=== PATIENT | female | born 1990 | race African-American/Black ===

== ENCOUNTER → 2019-08-27 | Outpatient (CLI) | payer OTHER ==
[~2019-08-27] MED LIST: ENBRACE HR SOF1 EACH PO; PEPCID20 MG PO; VITAFOL-OB+DHA1 EACH PO; ZOFRAN ODT4 MG PO
== END ==
LOC: ULTRA 08:46
DX: R10.11 Right upper quadrant pain (principal)

== ENCOUNTER 2019-09-06 10:22 | Emergency (ER) | payer OTHER ==
[~2019-09-06] VITALS: Ht 160 cm; Wt 86.2 kg
[2019-09-06] MEDS ORDERED: ENBRACE HR SOF1 EACH PO (10:46)
[2019-09-06 11:42] LABS: ABSOLUTE NEUTROPHILS 2.2 thou/uL (1.4-8.2); BASOPHILS 0.9 % (0.0-2.0); HEMATOCRIT 39.6 % (37.0-47.0); HEMOGLOBIN 13.2 gm/dL (12.0-15.0); LYMPHOCYTES 35.4 % (24.0-44.0); MCH 30.5 pg (26.0-34.0); MCHC 33.3 g/dL (28.0-37.0); MCV 91.4 fL (80.0-100.0); MONOCYTES 8.7 % (1.0-8.0); PLATELET COUNT 310 thou/uL (150-400); RBC 4.33 mil/uL (4.20-5.00); RDW 13.2 % (10.5-14.5); WBC 4.2 thou/uL (4.0-11.0)
[2019-09-06 11:44] LABS: CALCIUM 9.1 mg/dL (8.5-10.1); CREATININE 0.7 mg/dL (0.6-1.0); POTASSIUM 3.5 mmol/L (3.5-5.1)
[2019-09-06 11:51] LABS: ALBUMIN 3.3 g/dL (3.4-5.0); DIRECT BILIRUBIN 0.1 mg/dL (<0.1-0.2); TOTAL BILIRUBIN 0.4 mg/dL (<0.1-1.0)
[2019-09-06] MEDS ORDERED: VITAFOL-OB+DHA1 EACH PO (13:15)
[2019-09-06] MEDS ORDERED: ZOFRAN ODT4 MG PO (13:15)
[2019-09-06] MEDS ORDERED: PEPCID20 MG PO (13:15)
[2019-09-06 13:25] LABS: URINE BLOOD NEGATIVE (Negative); URINE CLARITY CLEAR; URINE COLOR YELLOW; URINE GLUCOSE-RANDOM* NEGATIVE (Negative); URINE KETONES TRACE (Negative); URINE LEUKOCYTES-REFLEX NEGATIVE (Negative); URINE NITRITE-REFLEX NEGATIVE (Negative); URINE PROTEIN (DIPSTICK) TRACE (Negative)
[2019-09-06 13:35] LABS: ICTOTEST (BILI CONFIRMATORY) Negative (Negative); URINE BILIRUBIN NEGATIVE (Negative)
[2019-09-06 13:47] VITALS: BP 117/64
== END 2019-09-06 13:49 | disposition home or self-care (01) ==
LOC: ER 10:22
PROVIDERS: Emergency Medicine; Physician Assistant
DX: O21.9 Vomiting of pregnancy, unspecified (principal); O26.891 Other specified pregnancy related conditions, first trimester; R10.13 Epigastric pain; Z3A.08 8 weeks gestation of pregnancy; Z79.899 Other long term (current) drug therapy; Z90.49 Acquired absence of other specified parts of digestive tract; Z98.890 Other specified postprocedural states

== ENCOUNTER → 2019-11-12 | Outpatient (CLI) | payer OTHER | LOC: ULTRA 10:14 | DX: Z34.92 Encounter for supervision of normal pregnancy, unspecified, second trimester (principal); Z3A.18 18 weeks gestation of pregnancy ==

== ENCOUNTER 2019-11-28 11:41 | Emergency (ER) | payer OTHER ==
[~2019-11-28] VITALS: Ht 152.4 cm; Wt 86.6 kg
[2019-11-28] MEDS ORDERED: MIRALAX119 GM PO (12:01)
[2019-11-28 12:26] LABS: URINE BILIRUBIN NEGATIVE (Negative); URINE BLOOD NEGATIVE (Negative); URINE COLOR YELLOW; URINE GLUCOSE-RANDOM* NEGATIVE (Negative); URINE KETONES 1+ (Negative); URINE LEUKOCYTES-REFLEX NEGATIVE (Negative); URINE NITRITE-REFLEX NEGATIVE (Negative); URINE PROTEIN (DIPSTICK) NEGATIVE (Negative); URINE UROBILINOGEN 0.2 E.U./dl (0.2-1.0)
[2019-11-28 12:27] LABS: URINE CLARITY SLIGHTLY CLOUDY
[2019-11-28 12:46] LABS: ANION GAP 12 mmol/L (7-16); BUN 5 mg/dL (7-18); CALCIUM 9.1 mg/dL (8.5-10.1); CHLORIDE 103 mmol/L (98-107); CO2 20 mmol/L (21-32); CREATININE 0.5 mg/dL (0.6-1.0); GLUCOSE 80 mg/dL (74-106); POTASSIUM 3.6 mmol/L (3.5-5.1); SODIUM 135 mmol/L (136-145)
[2019-11-28 12:52] LABS: ALBUMIN 2.6 g/dL (3.4-5.0); DIRECT BILIRUBIN < 0.1 mg/dL (<0.1-0.2); SGOT 17 U/L (15-37); SGPT 7 U/L (30-65); TOTAL BILIRUBIN 0.3 mg/dL (<0.1-1.0); TOTAL PROTEIN 6.5 g/dL (6.4-8.2)
[2019-11-28 12:53] LABS: ABSOLUTE NEUTROPHILS 3.9 thou/uL (1.4-8.2); BASOPHILS 0.3 % (0.0-2.0); HEMOGLOBIN 12.7 gm/dL (12.0-15.0); LYMPHOCYTES 23.7 % (24.0-44.0); MCHC 33.5 g/dL (28.0-37.0); MCV 92.5 fL (80.0-100.0); MONOCYTES 6.8 % (1.0-8.0); PLATELET COUNT 313 thou/uL (150-400); POLYS 67.2 % (36.0-66.0); RBC 4.11 mil/uL (4.20-5.00); RDW 14.3 % (10.5-14.5); WBC 5.8 thou/uL (4.0-11.0)
[2019-11-28] MEDS ORDERED: REGLAN 10 MG TA10 MG PO (15:05)
[2019-11-28] MEDS ORDERED: FLONASE 0.05%50 MCG NARES (15:05)
[2019-11-28] MEDS ORDERED: 3-DAY VAGINAL C21 GM VAG (15:26)
[2019-11-28 16:30] VITALS: BP 126/73
== END 2019-11-28 16:30 | disposition home or self-care (01) ==
LOC: ER 11:41
PROVIDERS: Emergency Medicine
DX: O26.892 Other specified pregnancy related conditions, second trimester (principal); R10.84 Generalized abdominal pain; Z3A.20 20 weeks gestation of pregnancy; M54.2 Cervicalgia; M54.9 Dorsalgia, unspecified; R10.2 Pelvic and perineal pain; R09.81 Nasal congestion; R11.0 Nausea; Z79.899 Other long term (current) drug therapy; Z90.49 Acquired absence of other specified parts of digestive tract

== ENCOUNTER 2020-02-13 13:50 | Emergency (ER) | payer OTHER ==
[~2020-02-13] VITALS: Ht 160 cm; Wt 104.3 kg
[~2020-02-13 13:50] MED LIST changes: +3-DAY VAGINAL C21 GM VAG; +FLONASE 0.05%50 MCG NARES; +MIRALAX119 GM PO; +REGLAN 10 MG TA10 MG PO
[2020-02-13] MEDS ORDERED: FLEXERIL PO (14:10)
[2020-02-13 14:25] LABS: URINE BILIRUBIN NEGATIVE (Negative); URINE BLOOD NEGATIVE (Negative); URINE CLARITY SL CLOUDY; URINE COLOR YELLOW; URINE GLUCOSE-RANDOM* NEGATIVE (Negative); URINE KETONES NEGATIVE (Negative); URINE LEUKOCYTES-REFLEX NEGATIVE (Negative); URINE NITRITE-REFLEX NEGATIVE (Negative); URINE PROTEIN (DIPSTICK) NEGATIVE (Negative); URINE SPECIFIC GRAVITY 1.015 (1.005-1.035); URINE UROBILINOGEN 0.2 E.U./dl (0.2-1.0)
[2020-02-13 14:48] LABS: CALCIUM 8.9 mg/dL (8.5-10.1); CREATININE 0.6 mg/dL (0.6-1.0); POTASSIUM 3.9 mmol/L (3.5-5.1)
[2020-02-13 14:50] LABS: ABSOLUTE NEUTROPHILS 3.9 thou/uL (1.4-8.2); BASOPHILS 0.2 % (0.0-2.0); EOSINOPHILS 1.6 % (0.0-3.0); HEMATOCRIT 37.9 % (37.0-47.0); HEMOGLOBIN 12.7 gm/dL (12.0-15.0); LYMPHOCYTES 21.5 % (24.0-44.0); MCH 31.3 pg (26.0-34.0); MCHC 33.5 g/dL (28.0-37.0); MCV 93.3 fL (80.0-100.0); MONOCYTES 10.6 % (1.0-8.0); PLATELET COUNT 243 thou/uL (150-400); POLYS 66.1 % (36.0-66.0); RBC 4.06 mil/uL (4.20-5.00); WBC 5.9 thou/uL (4.0-11.0)
[2020-02-13 14:54] LABS: ALBUMIN 2.4 g/dL (3.4-5.0); MAGNESIUM 1.5 mg/dL (1.8-2.4); TOTAL BILIRUBIN 0.3 mg/dL (<0.1-1.0); TOTAL PROTEIN 6.5 g/dL (6.4-8.2)
[2020-02-13] MEDS ORDERED: ACETAMINOPHEN650 M5 PO (16:08)
[2020-02-13] MEDS ORDERED: PREDNISONE 20 M20 MG PO (16:16)
[2020-02-13 16:19] VITALS: BP 96/74
== END 2020-02-13 16:19 | disposition home or self-care (01) ==
LOC: ER 13:50
PROVIDERS: Physician Assistant
DX: O26.893 Other specified pregnancy related conditions, third trimester (principal); G56.03 Carpal tunnel syndrome, bilateral upper limbs; Z3A.31 31 weeks gestation of pregnancy; Z79.899 Other long term (current) drug therapy; Z90.49 Acquired absence of other specified parts of digestive tract; Z98.890 Other specified postprocedural states

== ENCOUNTER → 2020-07-17 | Outpatient (CLI) | payer OTHER ==
[~2020-07-17] MED LIST changes: +ACETAMINOPHEN650 M5 PO; +FLEXERIL PO; +PREDNISONE 20 M20 MG PO
== END ==
LOC: LAB 13:13
PROVIDERS: ATTEND Nurse Practitioner
DX: U07.1 COVID-19 (principal)

== ENCOUNTER 2021-02-22 08:26 | Emergency (ER) | payer OTHER ==
[~2021-02-22] VITALS: Ht 162.6 cm; Wt 90.7 kg
[2021-02-22 09:00] LABS: URINE BILIRUBIN NEGATIVE (Negative); URINE BLOOD NEGATIVE (Negative); URINE CLARITY CLEAR; URINE COLOR YELLOW; URINE GLUCOSE-RANDOM* NEGATIVE (Negative); URINE KETONES NEGATIVE (Negative); URINE LEUKOCYTES-REFLEX NEGATIVE (Negative); URINE NITRITE-REFLEX NEGATIVE (Negative); URINE PROTEIN (DIPSTICK) NEGATIVE (Negative); URINE SPECIFIC GRAVITY >= 1.030 (1.005-1.035); URINE UROBILINOGEN 0.2 E.U./dl (0.2-1.0)
[2021-02-22 10:00] LABS: ABSOLUTE NEUTROPHILS 3.3 thou/uL (1.4-8.2); BASOPHILS 0.4 % (0.0-2.0); HEMOGLOBIN 14.5 gm/dL (12.0-15.0); LYMPHOCYTES 24.8 % (24.0-44.0); MCHC 33.8 g/dL (28.0-37.0); MCV 91.7 fL (80.0-100.0); MONOCYTES 7.4 % (1.0-8.0); PLATELET COUNT 314 thou/uL (150-400); POLYS 66.4 % (36.0-66.0); RBC 4.68 mil/uL (4.20-5.00); RDW 13.8 % (10.5-14.5)
[2021-02-22 10:05] LABS: ANION GAP 8 mmol/L (7-16); BUN 11 mg/dL (7-18); CALCIUM 9.2 mg/dL (8.5-10.1); CHLORIDE 108 mmol/L (98-107); CO2 25 mmol/L (21-32); CREATININE 0.9 mg/dL (0.6-1.0); GLUCOSE 85 mg/dL (74-106); POTASSIUM 3.9 mmol/L (3.5-5.1); SODIUM 141 mmol/L (136-145)
[2021-02-22 10:15] LABS: ALBUMIN 3.5 g/dL (3.4-5.0); SGOT 12 U/L (15-37); SGPT 18 U/L (14-59); TOTAL BILIRUBIN 0.3 mg/dL (0.2-1.0); TOTAL PROTEIN 7.5 g/dL (6.4-8.2); TROPONIN-I <0.06 ng/mL (<0.06)
[2021-02-22] MEDS ORDERED: NOHOMEMEDICATIONS (10:26)
[2021-02-22] MEDS ORDERED: FLEXERIL PO (10:27)
[2021-02-22 10:35] VITALS: BP 121/71
--- NOTE | 2021-02-22 12:10 | EKG ---
[address] [address] ELECTROCARDIOGRAM REPORT Name: KENISHA GORDON CHE Room #: [facility]#: [id number] Admission: 02/22/21 Attend Phys: Discharge: 02/22/21 Date of : 88 Report #: [id number] [facility] ED Test Date: 2021-02-22 Test Time: 08:31:15 Pat Name: KENISHA GORDON CHE Department: Room: Gender: F Solutions Architect: JULIO : 1990 Requested By: Gino Miller Order Number: [id number] MD: Amadeo Winter Measurements Intervals [place] Rate: 82 P: 58 DE: 163 QRS: 68 QRSD: 81 T: 33 QT: 328 QTc: 383 Interpretive Statements Sinus rhythm No previous ECG available for comparison Electronically Signed On 02-22-2021 12:10:25 CDT by Amadeo Winter [email or web address] <ELECTRONICALLY SIGNED> By: Amadeo Winter MD 02/22/21 1210 0831 0831 Amadeo Winter MD /EPI
== END 2021-02-22 10:35 | disposition home or self-care (01) ==
LOC: ER 08:26
PROVIDERS: Emergency Medicine
DX: M54.5 Low back pain (principal); R07.89 Other chest pain; Z98.890 Other specified postprocedural states; Z90.49 Acquired absence of other specified parts of digestive tract

== ENCOUNTER 2021-02-24 11:28 | Inpatient (IN) | payer OTHER ==
[~2021-02-24] VITALS: Ht 165.1 cm; Wt 93.6 kg
[~2021-02-24 11:28] MED LIST changes: +NOHOMEMEDICATIONS
[2021-02-24 11:29] VITALS: BP 111/71
[2021-02-24 12:32] LABS: ABSOLUTE NEUTROPHILS 3.1 thou/uL (1.4-8.2); BASOPHILS 0.7 % (0.0-2.0); EOSINOPHILS 2.5 % (0.0-3.0); LYMPHOCYTES 28.3 % (24.0-44.0); MCH 31.1 pg (26.0-34.0); MCHC 34.3 g/dL (28.0-37.0); MCV 90.7 fL (80.0-100.0); MONOCYTES 6.9 % (1.0-8.0); PLATELET COUNT 296 thou/uL (150-400); POLYS 61.6 % (36.0-66.0); RBC 4.52 mil/uL (4.20-5.00); RDW 13.5 % (10.5-14.5)
[2021-02-24 12:43] LABS: CREATININE 0.9 mg/dL (0.6-1.0); POTASSIUM 3.6 mmol/L (3.5-5.1)
[2021-02-24 12:48] LABS: ALBUMIN 3.3 g/dL (3.4-5.0); TOTAL BILIRUBIN 0.3 mg/dL (0.2-1.0); TOTAL PROTEIN 7.1 g/dL (6.4-8.2)
[2021-02-24 13:16] LABS: URINE BILIRUBIN NEGATIVE (Negative); URINE BLOOD NEGATIVE (Negative); URINE CLARITY CLEAR; URINE COLOR YELLOW; URINE GLUCOSE-RANDOM* NEGATIVE (Negative); URINE KETONES NEGATIVE (Negative); URINE LEUKOCYTES-REFLEX NEGATIVE (Negative); URINE NITRITE-REFLEX NEGATIVE (Negative); URINE PROTEIN (DIPSTICK) NEGATIVE (Negative); URINE UROBILINOGEN 0.2 E.U./dl (0.2-1.0)
[2021-02-24 14:27] VITALS: BP 111/71
[2021-02-24 15:36] VITALS: BP 118/58
[2021-02-24 15:42] VITALS: BP 123/74
--- NOTE | 2021-02-24 17:06 | NUR ---
ASSUMED PT CARE UPON TRANSFER TO UNIT AROUND 1540. PATIENT IS A&OX4, ABLE TO MAKE NEEDS KNOWN. PATIENT COMPLAINS OF PAIN IN THE LEFT LOWER BACK RADIATING DOWN THE LEFT HIP AREA. GAVE PAIN MEDICATION PER EMAR. PATIENT IS ON ROOM AIR. UP WITH STANDBY ASSIST TO THE BATHROOM. PATIENT REMAINS CONTINENT. CALL LIGHT IS WITHIN REACH.
[2021-02-24 21:30] VITALS: BP 123/79
--- NOTE | 2021-02-25 03:59 | NUR ---
Assumed pt care at 1900. A/OX4, VSS. C/o pain to left back radiating down the leg, pain not reliefed by pain meds;Dr Willis notified and gave orders for Percocet 10/325mg X1,changed Morphine to 4mg Q4 PRN IV. Reports relief with the Percocet and prefers not to have Morphine for now. C/o N/V after Golytely;medicated with Zofran with some relief reported. Pt not able to complete all of the bowel prep by 0200,will endorse it to the day nurse. Resting quietly in bed at this time,will continue to monitor pt. Pt's NPO,IVF infusing w/o problems.
[2021-02-25 07:42] VITALS: BP 114/61
--- NOTE | 2021-02-25 11:44 | NUR ---
PT ADMITTED RELATED TO COLITIS AND ILEITIS. CM REVIEWED CHART AND SPOKE WITH CARE TEAM. CM MET WITH PT AT BEDSIDE THIS DAY. PT APPEARED TO BE A&O X4. CM ROLE INTRODUCED. PT INDICATED SHE RESIDES IN AN APARTMENT WITH HER CHILDREN. 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 PT INDICATED THAT SHE ANTICIPATES RETURNING HOME ONCE MEDICALLY STABLE. PT TO HAVE COLONOSCOPY THIS DAY. CM FOLLOWING REGARDING DC PLANNING.
--- NOTE | 2021-02-25 12:09 | NUR ---
ASSUMED PT CARE THIS AM. PT A&OX4, ABLE TO MAKE NEEDS KNOWN. IV PATENT ,FLUIDS AND MEDICATIONS INFUSING WITHOUT ISSUE. PATIENT ON ROOM AIR. PATIENT REMAINS NPO FOR COLONOSCOPT TODAY. PAIN RATED 8/10 IN THE PATIENTS BACK, GAVE PAIN MEDS PER EMAR. CALL LIGHT IS WITHIN REACH. PATIENT IS DENYING ANY NUMBNESS OR TINGLING.
[2021-02-25 16:11] VITALS: BP 126/59
[2021-02-25 20:00] VITALS: BP 114/68
--- NOTE | 2021-02-26 01:27 | NUR ---
assumed care approx 1900 evening 02/25. pt lying in bed at change of shift dozing off and on. pt awoke at assessment alert and oriented x4, appropriate and cooperative. IVF infusing to left ac. IV site edematous and tender. dcd from left ac and new IV site now in left hand. pt given pain med and IV Zofran as ordered. pt up to bathroom to void tolerating well. pt appears to be sleeping off and on. call light in reach. will continue to monitor.
[2021-02-26 08:45] VITALS: BP 124/68
[2021-02-26 15:22] VITALS: BP 124/68
[2021-02-26 15:54] VITALS: BP 116/46
--- NOTE | 2021-02-26 16:07 | NUR ---
patient alert and orinted x4, went to MRI today will call physican when results are in to possibly discharge home today, up ad wilfredo in room, nausea with morphine, nausea meds given per MAR, alternating medications for pain relief, with ice packs, physicain called and notified of patients pain not being relieved, no orders recieved continue alternating, patient stated finally having relief from medication compared to the beginning of the day, vitals stable, and afbrile. Call light with in reach. Will continue to monitor.
[2021-02-26 17:03] VITALS: BP 124/68
[2021-02-26 17:55] VITALS: BP 124/72
--- NOTE | 2021-02-26 18:19 | NUR ---
RN went over all discharge teaching but after walking patient became more nausous and diapheretic, RN did vitals at that time - with in normal limits, IV out, all questions answered, patient denies chest pain, shortness of breath, or dizziness. Patients medications were sent to here [facility] in [facility] predinsone 20mg 10count and perc 5mg/325mg 30count. RN called Dr. Willis of patients episode and reported vitals. Physician stated it would be safe for patient to stay. Physican will call back here shortly to speak to patient directly.
== END 2021-02-26 20:00 | disposition home or self-care (01) | DRG 387 ==
LOC: ER 11:28 → 4W 14:30 → EROBS 14:30 → 4W 15:38
PROVIDERS: Physician Assistant; ADMIT Family Medicine; ATTEND Family Medicine
PROC: 0DBE8ZX Excision of Large Intestine, Via Natural or Artificial Opening Endoscopic, Diagnostic (ICD-10-PCS; principal; 2021-02-25)
DX: K51.00 Ulcerative (chronic) pancolitis without complications (principal); Z90.49 Acquired absence of other specified parts of digestive tract; K52.9 Noninfective gastroenteritis and colitis, unspecified; G89.29 Other chronic pain; R10.30 Lower abdominal pain, unspecified
CPT/HCPCS: 10040; 62110; 62900; 70005

== ENCOUNTER → 2021-04-19 | Outpatient (CLI) | payer OTHER ==
[2021-04-19 15:42] LABS: ABSOLUTE NEUTROPHILS 3.4 thou/uL (1.4-8.2); BASOPHILS 0.6 % (0.0-2.0); EOSINOPHILS 2.8 % (0.0-3.0); HEMATOCRIT 41.7 % (37.0-47.0); HEMOGLOBIN 14.3 gm/dL (12.0-15.0); LYMPHOCYTES 27.8 % (24.0-44.0); MCH 30.9 pg (26.0-34.0); MCHC 34.2 g/dL (28.0-37.0); MCV 90.3 fL (80.0-100.0); MONOCYTES 9.6 % (1.0-8.0); PLATELET COUNT 343 thou/uL (150-400); POLYS 59.2 % (36.0-66.0); RBC 4.61 mil/uL (4.20-5.00); RDW 13.4 % (10.5-14.5); WBC 5.8 thou/uL (4.0-11.0)
[2021-04-19 16:04] LABS: ALBUMIN 3.7 g/dL (3.4-5.0); CALCIUM 9.2 mg/dL (8.5-10.1); CREATININE 0.8 mg/dL (0.6-1.0); POTASSIUM 3.7 mmol/L (3.5-5.1); TOTAL BILIRUBIN 0.4 mg/dL (0.2-1.0); TOTAL PROTEIN 7.9 g/dL (6.4-8.2)
== END ==
LOC: LAB 14:55
PROVIDERS: ATTEND Internal Medicine Gastroenterology
DX: M54.5 Low back pain (principal); R93.89 Abnormal findings on diagnostic imaging of other specified body structures

== ENCOUNTER → 2021-05-04 | Outpatient (CLI) | payer OTHER | LOC: CAT 08:16 | PROVIDERS: ATTEND Internal Medicine Gastroenterology | DX: N83.291 Other ovarian cyst, right side (principal); N83.292 Other ovarian cyst, left side; G89.29 Other chronic pain; M54.5 Low back pain ==